=== PATIENT | female | born 1960 | race Caucasian/White ===

== ENCOUNTER 2023-05-23 09:10 | Emergency (ER) | payer OTHER, SELFPAY ==
[2023-05-23 09:18] VITALS: BP 187/114
[2023-05-23 09:58] VITALS: BMI 33.2
[2023-05-23 10:01] VITALS: BP 183/92
[2023-05-23] MEDS: NSS 500 IV (10:07)
[2023-05-23 10:24] LABS: % Basophils 0.9 % (0-2); % Eosinophils 0.8 % (0-6); % Immature Granulocytes 0.8 % (0-0.5); % Lymphocytes 31.6 % (20.5-51.1); % Monocytes 5.9 % (1.7-9.3); Absolute Basophils 0.1 10^3/uL (0-0.2); Absolute Lymphocytes 1.7 10^3/uL (1.2-3.4); Absolute Monocytes 0.3 10^3/uL (0.1-0.6); Absolute Neutrophils 3.2 10^3/uL (1.4-6.5); Hematocrit 41.7 % (37.0-47.0); Hemoglobin 13.7 g/dL (12.0-16.0); Mean Corp Hgb Conc. 32.9 g/dL (33.0-37.0); Mean Corpuscular Hgb 26.2 pg (27.0-31.0); Mean Corpuscular Volume 79.9 fL (81.0-99.0); Mean Platelet Volume 9.2 fL (7.4-10.4); Nucleated Red Blood Cells % 0 %; Platelet Count 291 10^3/uL (130-400); Red Blood Cell Count 5.22 10^6/uL (4.20-5.40); Red Cell Dist. Width 13.9 % (11.5-14.5); White Blood Cell Count 5.3 10^3/uL (4.8-10.8)
[2023-05-23 10:37] LABS: ALT (SGPT) 20 U/L (0-35); AST (SGOT) 21 U/L (14-36); Albumin 4.5 g/dl (3.5-5.0); Alkaline Phosphatase 67 U/L (38-126); Blood Urea Nitrogen 13 mg/dl (7-17); Calcium 9.2 mg/dl (8.4-10.2); Carbon Dioxide 28 mmol/L (22-30); Chloride 106 mmol/L (98-107); Estimated Creatinine Clearance 89 ml/min; Glucose 156 mg/dl (70-99); Potassium 4.3 mmol/L (3.5-5.1); Sodium 139 mmol/L (135-145); Total Bilirubin 0.4 mg/dl (0.2-1.3); Total Protein 7.3 g/dl (6.3-8.2); eGFR > 60.00
--- NOTE | 2023-05-23 10:43 | ED.GENMED ---
History of Present Illness
General
Chief Complaint: Headache
Source: patient
Exam Limitations: none
Time Seen by Provider: 05/23/23 09:57
Nursing documentation reviewed up to this point in time: agreed with
Travel History
Have you had any contact with someone who has COVID-19?: No
Do you have any symptoms of coronavirus? Fever > 100 degrees, chills, cough, shortness of breath, sore throat, loss of taste or smell, muscle aches, or headache?: No
History of Present Illness
History of Present Illness:
63-year-old female with a past medical history of hyperlipidemia, migraine who presents to the emergency room, by daughter for evaluation of headache. Patient reports that she has had consistent headache for the past week. She says that she has
been treating with Advil which will make it go away for a few hours but then headache consistently returns. Her last dose of Advil was a few hours ago she says that currently she is free of headache. She describes the headache as a sharp 'ice
pick' in the left side of her head in the temporal region. No clear triggering factors noted�relieved with Advil as above. She denies any associated nausea or vomiting. Denies any neck pain or stiffness. She denies any congestion. No ear pain.
She denies any change in her speech or vision. She denies any focal weakness, numbness in her extremities. She denies any dizziness. She denies any jaw claudication. She denies any head trauma.
Past History
Past History
ED Past Medical History: Hypothyroidism and Other (Leni's thyroiditis)
ED Past Surgical History: Cholecystectomy
Social History
Tobacco: Non-smoker
Alcohol: None
Personal:
Living: with family
Family History
Family History: Other (Mother and father with COPD)
Review of Systems
Review of Systems
All Other Systems: ROS reviewed and negative except as documented in HPI and ROS
Constitutional: Denies fever or chills
EENT: Reports other (Denies congestion); Denies sore throat
Respiratory: Denies trouble breathing
Cardiac: Denies chest pain
ABD/GI: Denies abdominal pain, nausea or vomiting
: Denies flank pain
Musculoskeletal: Denies neck pain or back pain
Neurological: Reports headache; Denies dizzy, weakness or numbness
Phy Exam
Physical Exam
Physical Exam:
General: Awake, alert, oriented x3; no acute distress
Head: Normocephalic, atraumatic
Eyes: Conjunctiva normal, EOMI, pupils equal round reactive to light bilaterally, visual wilson are intact
Throat: Airway intact, handling secretions
Neck: Trachea midline, supple without meningismus
Lungs: Clear to auscultation bilaterally, no wheezing, rales, rhonchi
Heart: Regular rate and rhythm, no murmurs, gallops, or rubs
Abd: Soft, non distended, nontender
Neuro: Cranial nerves intact 2 through 12, speech fluent without dysarthria or aphasia, no limb ataxia, motor and sensory function intact and symmetric proximally and distally in the upper and lower extremities
Skin: no rash
Extremities: No edema in extremities, equal pulses in all extremities
Scores
Heart Failure Risk
Heart Failure Risk Score: Not Applicable
Heart Score for Chest Pain Patients
STEMI patient?: Not applicable
Withdrawal Assessment of Alcohol
Withdrawal Assessment Completed?: Not applicable
Course
Orders/Labs/Results
Orders:
Orders
05/23/23 10:00
CT Head W/o Iv Contrast Urgent
Comment:
Reason For Exam: left sided headache
05/23/23 10:01
0.9% Sodium Chloride 500 ml [Nss] 500 ml IV BOLUS
05/23/23 10:07
Complete Blood Count/With Diff Urgent
Comprehensive Metabolic Panel Urgent
ESR [Erythrocyte Sed Rate] Urgent
05/23/23 10:43
Lorazepam [Ativan] 0.5 mg IV NOW STA
05/23/23 12:44
Dexamethasone Sod Phosphate [Decadron] 10 mg IV NOW STA
Sumatriptan Succinate [Imitrex] 50 mg PO NOW STA
05/23/23 12:52
Ketorolac [Toradol] 15 mg IV NOW STA
Abnormal Lab Results
05/23/23
10:07
MCV 79.9 L fL
(81.0-99.0)
MCH 26.2 L pg
(27.0-31.0)
MCHC 32.9 L g/dL
(33.0-37.0)
Immature Gran % 0.8 H %
(0-0.5)
Glucose 156 H mg/dl
(70-99)
05/23/23 10:07
05/23/23 10:07
Vital Signs
Initial and Last Documented VS:
Initial Vital Signs
Temp Pulse Resp BP Pulse Ox
37.3 C 109 20 187/114 99
05/23/23 09:18 05/23/23 09:18 05/23/23 09:18 05/23/23 09:18 05/23/23 09:18
Last Documented Vital Signs
Temp Pulse Resp BP Pulse Ox
37.3 C 106 15 173/101 99
05/23/23 09:18 05/23/23 11:15 05/23/23 11:15 05/23/23 11:00 05/23/23 11:15
MDM/Problems Addressed
Differential Diagnosis Includes:
Migraine headache, tension headache, sinus headache, less likely intracranial hemorrhage/subarachnoid hemorrhage based on clinical presentation
MDM/Problems Addressed:
63-year-old female with history as above presents for evaluation of headache for the past week�she describes left-sided ice pick headache that improves with Advil but has been consistently returning when Advil wears off. She is hypertensive here to
187/114, tachycardic�she says she is quite anxious and has been under a lot of stress recently. She is requesting something for anxiety. Physical exam is as above. Will plan to place an IV check labs including a CBC and a CMP, ESR. Will check CT
head. Will provide some fluids, Ativan. She is currently headache free, declined any headache medication. Monitor closely reassess after the above.
Chronic conditions affecting care:
migraines
Acute Exacerbation and/or Progression of Chronic Illness:
Acutely hypertensive suspect related to anxiety will treat with Ativan for now
*Radiology
Radiology exam reviewed: radiology read reviewed
*Pulse Oximetry
Patient hypoxic: no
*Critical Care Note
Total Time (30-74mins, 75-104mins- exclusive of procedures): Not Applicable
Data Reviewed
Source: patient and family (Daughter)
ED Attending Note
-
Portions of this chart may have been created with voice recognition software.� Occasional wrong word or��sound alike� substitutions may have occurred due to the inherent limitations of voice recognition software.
Discharge Plan
Departure
Discharge Problem:
Headache, Hypertension
Instructions: Migraines (DC), Headache, Adult (DC), BLOOD PRESSURE
Prescriptions:
No Action
[facility] Thyroid
1 tab PO DAILY
Referrals:
Colin Herman MD [Active] - As needed (Neurology--follow up as needed for persistent headaches/migraines)
Aba Estrada DO [Family Provider] - Call in 1-3 days for appt
Activity Restrictions/Additional Instructions:
Thank you for visiting the Emergency Department at [facility].
1. Please schedule a follow up appointment as directed. Call first thing tomorrow morning to make an appointment.
2. If indicated, please take your medications as instructed and indicated on discharge paperwork.
3. If any of your symptoms do not improve, or persist, or become more severe within 6-12 hours, please return to the emergency department for further care.
4. Please return to the emergency department if you develop a headache, neck pain/stiffness, fever greater than 100.4F, chest pain, shortness of breath, persistent nausea, vomiting, slurred speech, difficulty walking, numbness/tingling, weakness,
signs of infection or any other symptoms that are worrisome to you.
Please call [phone] if you have any questions.
Interventions
Interventions:
*Risk Screen - Suicide Last Done: 05/23/23 09:58
*General Assessment Last Done: 05/23/23 09:58
*Neglect/Abuse Screening Last Done: 05/23/23 09:58
ED- Fall Risk Assessment Last Done: 05/23/23 09:58
*ED COVID-19 Vaccine History Last Done: 05/23/23 09:58
ED- Neurological Assessment Last Done: 05/23/23 09:58
[2023-05-23] MEDS: ATIVAN 0.5 MG IV (10:55)
[2023-05-23 11:00] VITALS: BP 173/101
[2023-05-23 11:18] LABS: Erythrocyte Sed Rate 12 mm/hour (0-20)
[2023-05-23] MEDS: DECADRON 10 MG IV (13:15)
[2023-05-23] MEDS: TORADOL 15 MG IV (13:15)
[2023-05-23 13:24] VITALS: BP 162/98
[2023-05-23] MEDS: IMITREX 50 MG PO (13:28)
== END 2023-05-23 13:30 | disposition home or self-care (01) ==
LOC: EMR 09:10
PROVIDERS: EMERGENCY PHYSICIAN Emergency Medicine; FAMILY PHYSICIAN Family Medicine
DX: R51.9 Headache, unspecified (principal); I10 Essential (primary) hypertension; E78.5 Hyperlipidemia, unspecified; E06.3 Autoimmune thyroiditis; E03.9 Hypothyroidism, unspecified; F41.9 Anxiety disorder, unspecified; Z90.49 Acquired absence of other specified parts of digestive tract
CPT/HCPCS: 99284; 96374; 96375; 96361; 70450; 80053; 85025; 85652